=== PATIENT | male | born 2000 | race Caucasian/White ===

== ENCOUNTER 2022-10-12 12:35 | Emergency (ER) | payer SELFPAY ==
[~2022-10-12] VITALS: Ht 182.9 cm; Wt 61.2 kg
--- NOTE | 2022-10-12 12:54 | NUR ---
DR ROWLAND AT BEDSIDE FOR EVAL.
--- NOTE | 2022-10-12 13:19 | NUR ---
RENÉ OTOOLE AT BEDSIDE FOR BLOOD DRAW.
[2022-10-12] MEDS ORDERED: HALOPERIDOL LACTATE INJ 5 MG/ML VIAL ONE (13:38)
--- NOTE | 2022-10-12 13:38 | NUR ---
U/S TECH AT BEDSIDE FOR GALLBLADDER ULTRASOUND.
[2022-10-12] MEDS ORDERED: ONDANSETRON HCL/PF 4 MG/2 ML VIAL ONE (13:39)
[2022-10-12] MEDS: IV NS 0.9% 1,000 ML BAG IV ONE (13:45)
[2022-10-12 13:46] LABS: BASOPHILS % (AUTO) 0.1 % (0.0-2.0); HEMATOCRIT 43 % (39-51); HEMOGLOBIN 14.5 g/dL (13.5-17.5); LYMPHOCYTES # (AUTO) 1.2 K/uL (0.8-4.8); MEAN CORPUSCULAR HGB CONC 34 g/dl (31.0-36.0); MEAN CORPUSCULAR VOLUME 86 fL (80-96); MONOCYTES # (AUTO) 0.4 K/uL (0.1-1.30); MONOCYTES % (AUTO) 2.1 % (2.0-12.0); NEUTROPHILS # (AUTO) 15.4 K/uL (1.8-8.9); NEUTROPHILS % (AUTO) 90.8 % (43.0-81.0); PLATELET COUNT (AUTO) 349 K/uL (150-450); RED BLOOD CELL COUNT(AUTO) 4.95 MIL/uL (4.5-6.0)
[2022-10-12] MEDS: HALOPERIDOL LACTATE INJ 5 MG/ML VIAL IV ONE (13:50)
[2022-10-12] MEDS: ONDANSETRON HCL/PF 4 MG/2 ML VIAL IVP ONE (13:55)
[2022-10-12 13:59] LABS: ALBUMIN 4.3 g/dL (3.4-5.0); BILIRUBIN,DIRECT 0.2 mg/dL (0.0-0.2); BILIRUBIN,TOTAL 1.1 mg/dL (0.2-1.0); CREATININE 1.2 mg/dL (0.6-1.3); POTASSIUM 3.8 mmol/L (3.5-5.1); TOTAL PROTEIN, SERUM 7.5 g/dL (6.4-8.2)
[2022-10-12] MEDS ORDERED: ONDA4TAB11 PO ×2 (14:23→15:01)
--- NOTE | 2022-10-12 15:04 | NUR ---
IV removed. Catheter intact and site benign. Pressure and 4x4 applied to site. No bleeding noted.
--- NOTE | 2022-10-12 15:04 | NUR ---
Patient discharged to home in stable condition. Written and verbal after care instructions given. Patient verbalizes understanding of instruction.
[2022-10-12 15:05] VITALS: BP 128/74
== END 2022-10-12 15:06 | disposition home or self-care (01) ==
LOC: ER 12:37
DX: K29.70 Gastritis, unspecified, without bleeding (principal); R11.2 Nausea with vomiting, unspecified; Z79.899 Other long term (current) drug therapy
CPT/HCPCS: 99284; 96374; 76705; 96361; 96375; 85025; 80048; 83690; 80076; 36415; 82962; J1630; J2405; J7030